=== PATIENT | female | born 1965 | race Caucasian/White ===

== ENCOUNTER → 2022-08-12 | Outpatient (CLI) | payer OTHER ==
[~2022-08-12] MED LIST: ATORVASTATIN CA10 MG PO; CARVEDILOL3.125 MG PO; COQ-10100 MG PO; DOCUSATE SODIU250 MG PO; IBUPROFEN600 MG PO; LOSARTAN POTAS100 MG PO; MELOXICAM15 MG PO; METHOCARBAMOL500 MG PO; PERCOCET 5-3251 EACH PO
[2022-08-12 11:04] LABS: HEMOGLOBIN 14.8 gm/dl (12.3-15.3); RED BLOOD COUNT 4.67 M/UL (4.00-5.10); WHITE BLOOD COUNT 8.1 K/UL (4.5-11.0)
[2022-08-12 11:27] LABS: BUN/CREATININE RATIO 26 (0-10)
== END ==
LOC: OPSV2 09:58
PROVIDERS: Obstetrics & Gynecology
DX: Z01.818 Encounter for other preprocedural examination (principal); I10 Essential (primary) hypertension; G47.30 Sleep apnea, unspecified; F17.200 Nicotine dependence, unspecified, uncomplicated
CPT/HCPCS: 80048; 81001; 85025; 93005

== ENCOUNTER 2022-08-20 05:10 | Day surgery (SDC) | payer OTHER ==
[~2022-08-20] VITALS: Ht 170.2 cm; Wt 64.4 kg
[~2022-08-20 05:10] MED LIST changes: -DOCUSATE SODIU250 MG PO; -IBUPROFEN600 MG PO; -PERCOCET 5-3251 EACH PO
[2022-08-20 06:36] LABS: BUN/CREATININE RATIO 17 (0-10)
[2022-08-20] MEDS ORDERED: DOCUSATE SODIU250 MG PO (07:54)
[2022-08-20] MEDS ORDERED: IBUPROFEN600 MG PO (07:54)
[2022-08-20] MEDS ORDERED: PERCOCET 5-3251 EACH PO (07:54)
[2022-08-21 05:49] LABS: HEMOGLOBIN 11.8 gm/dl (12.3-15.3)
== END 2022-08-21 10:45 | disposition home or self-care (01) ==
LOC: OR 05:10 → M/S 18:16 → OR 08-21 10:45
PROVIDERS: Obstetrics & Gynecology
DX: D25.1 Intramural leiomyoma of uterus (principal); N80.0 Endometriosis of uterus; N84.0 Polyp of corpus uteri; N72 Inflammatory disease of cervix uteri; N83.291 Other ovarian cyst, right side; N32.89 Other specified disorders of bladder; N81.9 Female genital prolapse, unspecified; R15.0 Incomplete defecation; I10 Essential (primary) hypertension; F17.210 Nicotine dependence, cigarettes, uncomplicated; E78.5 Hyperlipidemia, unspecified; K21.9 Gastro-esophageal reflux disease without esophagitis; M19.90 Unspecified osteoarthritis, unspecified site; F41.9 Anxiety disorder, unspecified; F32.A Depression, unspecified; Z79.899 Other long term (current) drug therapy; Z88.5 Allergy status to narcotic agent
CPT/HCPCS: 36415; 80053; 85014; 85018; 88342; C1769; J0690; J1100; J1170; J1885; J2001; J2250; J2405; J2550; J2704; J3010; J7050